=== PATIENT | male | born 1960 | race Caucasian/White ===

== ENCOUNTER 2020-08-09 13:13 | Emergency (ER) | payer MEDICARE, OTHER ==
[2020-08-09 14:28] LABS: HEMOGLOBIN 15.2 gm/dl (14.0-17.5); RED BLOOD COUNT 4.92 M/UL (4.20-5.50); WHITE BLOOD COUNT 6.7 K/UL (4.5-11.0)
[2020-08-09 14:32] LABS: BUN/CREATININE RATIO 16 (0-10)
[2020-08-09] MEDS ORDERED: ZOFRAN ODT 4 MG4 MG SL (17:45)
== END 2020-08-09 17:55 | disposition home or self-care (01) ==
LOC: ER1 13:13
PROVIDERS: Physician Assistant Medical
DX: R10.9 Unspecified abdominal pain (principal); R11.2 Nausea with vomiting, unspecified; E11.9 Type 2 diabetes mellitus without complications; J44.9 Chronic obstructive pulmonary disease, unspecified; Z91.041 Radiographic dye allergy status; Z20.822 Contact with and (suspected) exposure to COVID-19
CPT/HCPCS: 0240U; 71045; 80053; 81001; 83605; 83690; 83735; 84439; 84443; 85025; 93005; 96374; 96375; 99284; J2270; J2405; J7030